=== PATIENT | female | born 1945 | race Caucasian/White ===

== ENCOUNTER 2017-12-10 13:05 | Emergency (ER) | payer OTHER ==
[2017-12-10 13:31] VITALS: BP 177/96; PULSE 102; RESP 22; O2SAT 100
[2017-12-10 13:39] VITALS: TEMP 98.1
[2017-12-10 13:42] VITALS: O2SAT 100
[2017-12-10] MEDS ORDERED: ASPIRIN 81 MG CHEW TAB PO ONE (13:45)
[2017-12-10] MEDS ORDERED: SODIUM CHLORIDE 0.9% FLUSH 10 ML FLUSH IVF PRN (13:45)
[2017-12-10] MEDS ORDERED: SODIUM CHLORID 0.9% 500 ML INJ 500 ML IV ONE (13:45)
[2017-12-10] MEDS ORDERED: ASPI-183 PO (14:08)
--- NOTE | 2017-12-10 14:17 | PD ---
HPI Chief Complaint: Cardiac Complaint Time Seen by Provider: 13:40 Travel History International Travel<30 days: No Contact w/Intl Traveler<30days: No Traveled to known affect area: No History of Present Illness HPI Is a 72-year-old woman who presents the emergency department complaining of chest pain associate with near syncope symptoms. States she was walking on a [employer] when she began to feel lightheaded, got sharp pinching chest pains. She said some nitroglycerin in her lightheadedness and dizziness worsened to the point that she felt near syncopal. Firefighters were called. When they arrived they found her pale cool diaphoretic. Blood pressure was down to 100s over 60s. She improved some in route her chest pain is since resolved. She states this happened to her multiple times in the past. 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 She otherwise had been feeling generally well and healthy. No other complaints. She states she has not had cardiac workup in years. She states she has an appointment with a "real " doctor coming up but she is not kept It yet. History Past Medical History Narrative Medical CAD Hypertension Osteoporosis Rheumatoid arthritis COPD Heart valve problems Social History Alcohol Use: No Tobacco Use: No Allergies-Medications (Allergen,Severity, Reaction): Coded Allergies: No Known Allergies (Verified Allergy, Unknown, 12/10/17) Reported Meds & Prescriptions Reported Meds & Active Scripts Active Reported Aspirin 325 Mg Tab 650 Mg PO DAILY Review of Systems Except as stated in HPI: all other systems reviewed are Neg Physical Exam Exam Limitations: Clinical Condition Narrative GENERAL: 72-year-old woman, well-appearing, no acute distress. A little bit pale. SKIN: Focused skin assessment warm/dry. HEAD: Atraumatic. Normocephalic. EYES: Pupils equal and round. No scleral icterus. Pale conjunctiva. ENT: No nasal bleeding or discharge. Mucous membranes pink and moist. NECK: Trachea midline. No JVD. CARDIOVASCULAR: Regular rate and rhythm. No murmur appreciated. RESPIRATORY: No accessory muscle use. Clear to auscultation. Breath sounds equal bilaterally. GASTROINTESTINAL: Abdomen soft, non-tender, nondistended. Hepatic and splenic margins not palpable. MUSCULOSKELETAL: No obvious deformities. No clubbing. No cyanosis. No edema. NEUROLOGICAL: Awake and alert. No obvious cranial nerve deficits. Motor grossly within normal limits. Normal speech. PSYCHIATRIC: Appropriate mood and affect; insight and judgment normal. Data Data Last Documented VS Vital Signs Date Time Temp Pulse Resp B/P (MAP) Pulse Ox O2 Delivery O2 Flow Rate FiO2 12/10/17 15:31 109 22 174/91 (118) 100 Nasal Cannula 2.00 12/10/17 13:39 98.1 Orders Orders Electrocardiogram (12/10/17 13:41) Complete Blood Count With Diff (12/10/17 13:41) Comprehensive Metabolic Panel (12/10/17 13:41) Magnesium (Mg) (12/10/17 13:41) Prothrombin Time / Inr (Pt) (12/10/17 13:41) Act Partial Throm Time (Ptt) (12/10/17 13:41) Troponin I (12/10/17 13:41) Ecg Monitoring (12/10/17 13:41) Iv Access Insert/Monitor (12/10/17 13:41) Oximetry (12/10/17 13:41) Oxygen Administration (12/10/17 13:41) Aspirin Chew (Aspirin Chew) (12/10/17 13:45) Sodium Chloride 0.9% Flush (Ns Flush) (12/10/17 13:45) Sodium Chlorid 0.9% 500 Ml Inj (Ns 500 M (12/10/17 13:45) Chest, Pa & Lat (12/10/17 13:41) Labs Laboratory Tests Test 12/10/17 14:00 White Blood Count 10.7 TH/MM3 Red Blood Count 3.58 MIL/MM3 Hemoglobin 9.9 GM/DL Hematocrit 29.1 % Mean Corpuscular Volume 81.1 FL Mean Corpuscular Hemoglobin 27.8 PG Mean Corpuscular Hemoglobin Concent 34.2 % Red Cell Distribution Width 20.0 % Platelet Count 492 TH/MM3 Mean Platelet Volume 6.8 FL Neutrophils (%) (Auto) 76.5 % Lymphocytes (%) (Auto) 13.5 % Monocytes (%) (Auto) 7.5 % Eosinophils (%) (Auto) 1.8 % Basophils (%) (Auto) 0.7 % Neutrophils # (Auto) 8.2 TH/MM3 Lymphocytes # (Auto) 1.4 TH/MM3 Monocytes # (Auto) 0.8 TH/MM3 Eosinophils # (Auto) 0.2 TH/MM3 Basophils # (Auto) 0.1 TH/MM3 CBC Comment DIFF FINAL Differential Comment Prothrombin Time 10.3 SEC Prothromb Time International Ratio 1.0 RATIO Activated Partial Thromboplast Time 18.0 SEC Blood Urea Nitrogen 14 MG/DL Creatinine 1.25 MG/DL Random Glucose 121 MG/DL Total Protein 7.5 GM/DL Albumin 3.9 GM/DL Calcium Level 9.3 MG/DL Magnesium Level 1.9 MG/DL Alkaline Phosphatase 43 U/L Aspartate Amino Transf (AST/SGOT) 17 U/L Alanine Aminotransferase (ALT/SGPT) 11 U/L Total Bilirubin 0.2 MG/DL Sodium Level 134 MEQ/L Potassium Level 4.4 MEQ/L Chloride Level 103 MEQ/L Carbon Dioxide Level 21.1 MEQ/L Anion Gap 10 MEQ/L Estimat Glomerular Filtration Rate 42 ML/MIN Troponin I LESS THAN 0.02 NG/ML [facility] Medical Decision Making Medical Screen Exam Complete: Yes Emergency Medical Condition: Yes Interpretation(s) My review of EKG: Normal sinus rhythm at a rate of 92, normal axis, normal intervals, no acute ischemia. Differential Diagnosis ACS, near syncope, valve disease, anemia, other Narrative Course Medical decision making 72-year-old woman presents emerged, chest pain or syncope. Chest pain is pinching and sharp and unlikely to be ACS. So, history of cardiac and valve disease although it is unclear. No records on our system. She appears pretty pale, may have some contributing anemia. I will hear any significant murmurs to suggest bowel dysfunction. Reassess. FINAL: Initial workup is unremarkable. I went to speak with the patient again. Do not have any of her old records here. She says she has been evaluated multiple times for these same complaints was found to have a "hole in her valve " that caused the symptoms. She describes having similar symptoms about once every month or 2 with extensive previous workups. She is comfortable with discharge home and outpatient follow-up which I think is reasonable. Diagnosis Primary Impression: Chest pain Patient Instructions: General Instructions Additional Instructions: Drink plenty of fluids and stay well-hydrated. Return to the emergency department for any recurrent chest pain or passing out episodes. Follow-up with your primary doctor as scheduled. Med/Other Pt SpecificInfo: No Change to Meds Disposition: DISCHARGE HOME Condition: Serious Rajiv Quinones MD Dec 10, 2017 14:17
[2017-12-10 14:21] LABS: AUTOMATED NEUTROPHIL # 8.2 TH/MM3 (1.8-7.7); BASOPHIL # 0.1 TH/MM3 (0-0.2); BASOPHIL % 0.7 % (0.0-2.0); EOSINOPHIL # 0.2 TH/MM3 (0-0.4); EOSINOPHIL % 1.8 % (0.0-4.0); HEMATOCRIT 29.1 % (35.0-46.0); HEMOGLOBIN 9.9 GM/DL (11.6-15.3); LYMPH % 13.5 % (9.0-44.0); LYMPHOCYTE # 1.4 TH/MM3 (1.0-4.8); MEAN CELL VOLUME 81.1 FL (80.0-100.0); MEAN CORPUSCULAR HEMOGLOBIN 27.8 PG (27.0-34.0); MEAN CORPUSCULAR HGB CONC 34.2 % (32.0-36.0); MEAN PLATELET VOLUME 6.8 FL (7.0-11.0); MONO % 7.5 % (0.0-8.0); MONOCYTE # 0.8 TH/MM3 (0-0.9); NEUT % 76.5 % (16.0-70.0); PLATELET COUNT 492 TH/MM3 (150-450); RED BLOOD COUNT 3.58 MIL/MM3 (4.00-5.30); WHITE BLOOD COUNT 10.7 TH/MM3 (4.0-11.0)
[2017-12-10 14:35] LABS: ALBUMIN 3.9 GM/DL (3.4-5.0); ALT (GPT) 11 U/L (10-53); AST (GOT) 17 U/L (15-37); BICARBONATE 21.1 MEQ/L (21.0-32.0); BLOOD UREA NITROGEN 14 MG/DL (7-18); CALCIUM 9.3 MG/DL (8.5-10.1); CHLORIDE 103 MEQ/L (98-107); CREATININE 1.25 MG/DL (0.50-1.00); GLOMERULAR FILTRATION RATE 42 ML/MIN (>89); GLUCOSE,RANDOM 121 MG/DL (74-106); MAGNESIUM 1.9 MG/DL (1.5-2.5); SODIUM (NA) 134 MEQ/L (136-145)
[2017-12-10 14:37] LABS: PROTHROMBIN TIME - PATIENT 10.3 SEC (9.8-11.6)
--- NOTE | 2017-12-10 15:01 | RADRPT ---
EXAM DATE/TIME: 12/10/2017 14:52 [facility] COMPARISON: No previous studies available for comparison. INDICATIONS : Short of breath. MEDICAL HISTORY : Chronic obstructive pulmonary disease. SURGICAL HISTORY : None. ENCOUNTER: Initial ACUITY: 1 day PAIN SCORE: 0/10 LOCATION: Bilateral chest FINDINGS: PA and lateral views of the chest demonstrate the lungs to be symmetrically aerated without evidence of mass, infiltrate or effusion. There is hyperaeration bilaterally. The cardiomediastinal contours are unremarkable. Osseous structures are intact. CONCLUSION: No acute disease. Zay Freeman MD on December 10, 2017 at 14:58 Board Certified Radiologist. This report was verified electronically.
[2017-12-10 15:11] LABS: ALKALINE PHOSPHATASE 43 U/L (45-117); TOTAL BILIRUBIN ADULT 0.2 MG/DL (0.2-1.0); TOTAL PROTEIN 7.5 GM/DL (6.4-8.2); TROPONIN I LESS THAN 0.02 NG/ML (0.02-0.05)
[2017-12-10 15:31] VITALS: BP 174/91; PULSE 109; RESP 22; O2SAT 100
--- NOTE | 2017-12-11 12:21 | EKG ---
Date Performed: 12/10/2017 Time Performed: 13:51:51 PTAGE: 72 years EKG: Sinus rhythm WITH OCCASIONAL SUPRAVENTRICULAR PREMATURE COMPLEXES BORDERLINE ECG NO PREVIOUS TRACING DOCTOR: Aakash Tang Interpretating Date/Time 12/11/2017 12:17:13
== END 2017-12-10 16:08 | disposition home or self-care (01) ==
LOC: NEPD 13:05
DX: R07.9 Chest pain, unspecified (principal); R55 Syncope and collapse
CPT/HCPCS: 71046; 80053; 83735; 84484; 85025; 85610; 85730; 93005; 96360; 99285; J7040